=== PATIENT | female | born 1960 | race Caucasian/White ===

== ENCOUNTER 2017-07-24 19:07 | Emergency (ER) | payer OTHER ==
[2017-07-24 19:14] VITALS: BMI 42.4
--- NOTE | 2017-07-24 19:21 | PDOC ---
History of Present Illness <Harika Maldonado - Last Filed: 07/24/17 20:02> <Trinity Hopson - Last Filed: 07/25/17 00:40> - General Chief Complaint: Chest Pain Stated Complaint: CHEST TIGHTNESS Time Seen by Provider: 07/24/17 19:09 - History of Present Illness Initial Comments: 07/24/17 20:02 The patient is a 56 year old female, with a significant past medical history of asthma (advair and singulair daily), hypertension, lymphedema, GERD (omeprazole) , and anxiety (Prozac BID), who presents to the emergency department with sudden onset of chest tightness followed immediately by numerous episodes of watery, brown stool around 5PM this evening. She states she was making dinner for her grandson when she developed a heaviness to the middle of her chest which has been constant since onset, however, is much less tight now. She reports noticing a warmth to her left shoulder but denies experiencing pain to her upper extremities. She denies the shoulder warmth now. She states she sat down and ate a baked potato and became very nauseous, which was then followed by her few episodes of nonbloody, diarrhea. She reports a similar episode of chest tightness on Saturday, 07/20, which she states resolved on its own. She states she feels much better being in the ED now and feels she might have let the anxiety get to me. She states the only similarity between today and Saturday is the caffeine she reports drinking just prior to the onset of her chest tightness. She states today she drank a lot of caffeine and on Saturday she had drank a bottle of Mountain Dew. Secondarily, she states she just started a cabbage soup diet yesterday in attempt to lose weight before a total hip replacement in the near future. She denies chest pain, shortness of breath, headache and dizziness. She denies fever, chills, nausea, vomit, diarrhea and constipation. She denies dysuria, frequency, urgency and hematuria. Allergies: NKDA Past surgical history: gastric bypass (11 years ago) PCP - Dr. Lyn Jansen (Harika Maldonado) Past History <Harika Maldonado - Last Filed: 07/24/17 20:02> - Past Medical History HTN: Yes - Surgical History Cholecystectomy: Yes Gastric Stapling: Yes - Suicide/Smoking/Psychosocial Hx Smoking History: Never smoked Have you smoked in the past 12 months: No Hx Alcohol Use: Yes Drug/Substance Use Hx: No Substance Use Type: Alcohol <Trinity Hopson - Last Filed: 07/25/17 00:40> - Past Medical History Allergies/Adverse Reactions: Allergies Allergy/AdvReac Type Severity Reaction Status Date / Time No Known Allergies Allergy Verified 07/24/17 19:08 Home Medications: Ambulatory Orders Albuterol Sulfate Inhaler - [Ventolin Hfa Inhaler -] 1 puff IH DAILY 07/24/17 Duloxetine HCl [Cymbalta -] 60 mg PO DAILY 07/24/17 Furosemide [Lasix] 40 mg PO DAILY 07/24/17 Losartan Potassium [Cozaar] 100 mg PO DAILY 07/24/17 Montelukast Na [Singulair -] 10 mg PO HS 07/24/17 Omeprazole 40 mg PO DAILY 07/24/17 Salmeterol/Fluticasone [Advair 500Mcg/50Mcg] 1 inh PO BID 07/24/17 Sertraline HCl [Zoloft] 100 mg PO DAILY 07/24/17 Review of Systems - Review of Systems Able to Perform ROS?: Yes <Harika Maldonado - Last Filed: 07/24/17 20:02> <Trinity Hopson - Last Filed: 07/25/17 00:40> - Review of Systems Comments:: 07/24/17 20:03 CONSTITUTIONAL: Absent: fever, chills, diaphoresis, generalized weakness, malaise, loss of appetite HEENT: Absent: rhinorrhea, nasal congestion, throat pain, throat swelling, difficulty swallowing,mouth swelling, ear pain, eye pain, visual Changes CARDIOVASCULAR: (+) chest "heaviness". Absent: chest pain, syncope, palpitations, irregular heart rate, lightheadedness, peripheral edema RESPIRATORY: Absent: cough, shortness of breath, dyspnea with exertion, orthopnea, wheezing, stridor, hemoptysis GASTROINTESTINAL: (+) nausea, diarrhea,Absent: abdominal pain, abdominal distension, vomiting, or constipation, melena, hematochezia GENITOURINARY: Absent: dysuria, frequency, urgency, hesitancy, hematuria, flank pain, genital pain MUSCULOSKELETAL: Absent: myalgia, arthralgia, joint swelling SKIN: Absent: rash, itching, pallor HEMATOLOGIC/IMMUNOLOGIC: Absent: easy bleeding, easy bruising, lymphadenopathy, frequent infections ENDOCRINE: Absent: unexplained weight gain, unexplained weight loss, heat intolerance, cold intolerance NEUROLOGIC: Absent: headache, focal weakness or paresthesias, dizziness, unsteady gait, seizure, mental status changes, bladder or bowel incontinence PSYCHIATRIC: Absent: anxiety, depression, suicidal or homicidal ideation, hallucinations. (Harika Maldonado) *Physical Exam <Harika Maldonado - Last Filed: 07/24/17 20:02> <Trinity Hopson - Last Filed: 07/25/17 00:40> - Vital Signs Last Vital Signs Temp Pulse Resp BP Pulse Ox 82 16 141/72 100 07/24/17 19:08 07/24/17 19:08 07/24/17 20:42 07/24/17 19:08 - Physical Exam Comments: 07/24/17 20:04 GENERAL: The patient is awake, alert, and fully oriented, in no acute distress. HEAD: Normal with no signs of trauma. EYES: Pupils equal, round and reactive to light, extraocular movements intact, sclera anicteric, conjunctiva clear with no pallor. ENT: Ears normal, nares patent, oropharynx clear without exudates. Moist mucous membranes. NECK: Normal range of motion, supple without lymphadenopathy, JVD, or masses. LUNGS: Breath sounds equal, clear to auscultation bilaterally. No wheeze/ crackles. HEART: Regular rate and rhythm, normal S1 and S2 without murmur or rub. ABDOMEN: Soft/nontender/nondistended. BS wnl. No guarding or rebound. No palpable masses. No hepatosplenomegaly. EXTREMITIES: Normal range of motion, no edema. No clubbing or cyanosis. No cords , erythema, or tenderness. NEUROLOGICAL: Cranial nerves II through XII grossly intact. Normal speech, normal gait. PSYCH: Normal mood, normal affect. SKIN: Warm, Dry, normal turgor, no rashes or lesions noted. (Harika Maldonado) ED Treatment Course - LABORATORY CBC & Chemistry Diagram: 07/24/17 19:24 07/24/17 19:24 <Harika Maldonado - Last Filed: 07/24/17 20:02> - LABORATORY CBC & Chemistry Diagram: 07/24/17 19:24 07/24/17 19:24 <Trinity Hopson - Last Filed: 07/25/17 00:40> - ADDITIONAL ORDERS Additional order review: Laboratory Results 07/24/17 19:24 Sodium 137 Potassium 4.6 Chloride 105 Carbon Dioxide 26 Anion Gap 6 L BUN 13 Creatinine 1.1 D Creat Clearance w eGFR 51.02 Random Glucose 115 H Calcium 9.5 Total Bilirubin 0.8 AST 34 ALT 24 Alkaline Phosphatase 80 Creatine Kinase 55 Troponin I < 0.03 L Total Protein 8.2 Albumin 4.8 07/24/17 19:24 RBC 4.76 MCV 91.9 MCHC 34.5 RDW 13.7 MPV 8.2 Neutrophils % 71.3 Lymphocytes % 15.3 Monocytes % 9.1 Eosinophils % 1.4 Basophils % 2.9 H Progress Note <Harika Mladonado - Last Filed: 07/24/17 20:02> <Trinity Hopson - Last Filed: 07/25/17 00:40> - Progress Note Progress Note: Documentation has been prepared under my direction and personally reviewed by me in its entirety. I attest that this documented accurately reflects all work, treatment, procedures and medical decision making performed by me. (Trinity Hopson) Medical Decision Making <Harika Maldonado - Last Filed: 07/24/17 20:02> <Trinity Hopson - Last Filed: 07/25/17 00:40> - Medical Decision Making As noted above, this 56-year-old woman with hypertension/asthma presents with chest pressure and diarrhea that began 2 hours prior to presentation. Symptoms have been improving since onset. She had no significant associated symptoms. As noted, the patient admits to high caffeine intake earlier today and change in diet starting yesterday. Exam as noted Twelve-lead electrocardiogram is performed and interpreted by me. Showed normal sinus rhythm at 66 bpm; axis, intervals and wave forms are all normal. No acute ST or T-wave abnormalities are seen. CBC/chemistry profile/cardiac enzymes were evaluated. No significant abnormality seen in her laboratory values. Patient is feeling significantly better without development of new symptoms and resolution of her chest pressure. Patient will be discharged with instructions to avoid excessive caffeine consumption; she should continue to take her medications as prescribed and follow-up with her general doctor within the next 2 days. She should return to the ER if she has any persistent chest pressure or develops shortness of breath/ diaphoresis/nausea (Trinity Hopson) *DC/Admit/Observation/Transfer <Harika Maldonado - Last Filed: 07/24/17 20:02> <Trinity Hopson - Last Filed: 07/25/17 00:40> Diagnosis at time of Disposition: Atypical chest pain - Discharge Dispostion Disposition: HOME Condition at time of disposition: Stable - Referrals Referrals: Lyn Jansen [Primary Care Provider] - - Patient Instructions Printed Discharge Instructions: DI for Atypical Chest Pain Additional Instructions: Drink plenty of water as discussed Continue medications as prescribed Return to ER if you have persistent chest pressure or shortness of breath Follow-up with your general doctor within the next 2-3 days - Attestations Scribe Attestion: 07/24/17 20:04 Documentation prepared by Harika Maldonado, acting as resident medical officer for Trinity Hopson MD (Harika Maldonado)
[2017-07-24 19:25] VITALS: PULSE 82
[2017-07-24 19:41] LABS: BASOPHIL 2.9 % (0-2.0); EOSINOPHIL 1.4 % (0-4.5); MCH 31.7 pg (25.7-33.7); MCHC 34.5 g/dl (32.0-36.0); MEAN CELL VOLUME 91.9 fl (80-96); MEAN PLT VOLUME 8.2 fl (7.5-11.1); NEUTROPHILS 71.3 % (42.8-82.8); PLATELET COUNT 212 K/MM3 (134-434); RDW 13.7 % (11.6-15.6); WHITE BLOOD COUNT 6.2 K/mm3 (4.0-10.8)
[2017-07-24 19:56] LABS: ALBUMIN 4.8 g/dl (3.5-5.0); ALK PHOS 80 U/L (32-92); ANION GAP 6 (8-16); BILIRUBIN,TOTAL 0.8 mg/dl (0.2-1.0); CALCIUM 9.5 mg/dl (8.4-10.2); CO2 26 mmol/L (22-28); CPK 55 IU/L (26-192); CREATININE 1.1 mg/dl (0.6-1.3); GLUCOSE,RANDOM 115 mg/dl (74-106); SGOT/AST 34 U/L (10-42); SGPT/ALT 24 U/L (10-40); TOT PROT 8.2 g/dl (6.4-8.3)
[2017-07-24 20:19] LABS: TROPONIN I (DFP) < 0.03 ng/ml (0.03-0.50)
[2017-07-24 20:42] VITALS: BP 141/72
--- NOTE | 2017-07-25 08:48 | EKG ---
Test Reason : Blood Pressure : / mmHG Vent. Rate : 066 BPM Atrial Rate : 066 BPM P-R Int : 152 ms QRS Dur : 074 ms QT Int : 400 ms P-R-T Axes : 044 023 044 degrees QTc Int : 419 ms NORMAL SINUS RHYTHM NORMAL ECG NO PREVIOUS ECGS AVAILABLE Confirmed by ADELITA LR MD ([id number]) on 07/25/2017 8:47:47 AM Referred By: DR HAWKINS Confirmed By:ADELITA LR MD
== END 2017-07-24 20:43 | disposition home or self-care (01) ==
LOC: FER 19:07
DX: R07.89 Other chest pain (principal); J45.909 Unspecified asthma, uncomplicated
CPT/HCPCS: 36415; 80053; 84484; 85025; 93005; 99283-25

== ENCOUNTER 2018-01-01 15:18 | Emergency (ER) | payer OTHER ==
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
[2018-01-01 15:38] VITALS: BMI 41.5
[2018-01-01] MEDS ORDERED: ASPIRIN 81 MG CHEWABLE TABLETS PO ONE (15:54)
[2018-01-01] MEDS ORDERED: ASPIRIN 81 MG CHEWABLE TABLETS ONE (16:01)
[2018-01-01 16:08] LABS: WHITE BLOOD COUNT 5.9 K/mm3 (4.0-10.8)
[2018-01-01 16:24] LABS: ALBUMIN 4.5 g/dl (3.5-5.0); ALK PHOS 80 U/L (32-92); ANION GAP 6 (8-16); BILIRUBIN,TOTAL 0.6 mg/dl (0.2-1.0); BLOOD UREA NITROGEN 13 mg/dl (7-18); CALCIUM 9.3 mg/dl (8.4-10.2); CHLORIDE 101 mmol/L (98-107); CO2 28 mmol/L (22-28); CREATININE 0.8 mg/dl (0.6-1.3); GLUCOSE,RANDOM 115 mg/dl (74-106); SGOT/AST 38 U/L (10-42); SGPT/ALT 21 U/L (10-40); SODIUM 135 mmol/L (136-145); TOT PROT 8.1 g/dl (6.4-8.3)
[2018-01-01 16:28] LABS: BASO % 0.7 % (0-2.0); EOS % 1.9 % (0-4.5); HEMOGLOBIN 14.9 GM/dl (10.7-15.3); LYMPH % 15.2 % (8-40); MCH 33.2 pg (25.7-33.7); MCHC 34.5 g/dl (32.0-36.0); MEAN CELL VOLUME 96.2 fl (80-96); MEAN PLT VOLUME 8.4 fl (7.5-11.1); MONO % 7.2 % (3.8-10.2); PLATELET COUNT 215 K/MM3 (134-434); RBC 4.47 M/mm3 (3.60-5.2); RDW 12.8 % (11.6-15.6)
[2018-01-01] MEDS ORDERED: ONDANSETRON 4 MG/2 ML VIAL IVPUSH ONE (18:42)
[2018-01-01] MEDS ORDERED: FAMOTIDINE IV 20 MG/12 ML VIAL IVPB ONE (18:42)
[2018-01-01] MEDS ORDERED: ONDANSETRON 4 MG/2 ML VIAL ONE (18:44)
[2018-01-01] MEDS ORDERED: FAMOTIDINE 20 MG/50 ML IVPB 20 MG/50 ML MG IVPB ONE (18:44)
--- NOTE | 2018-01-01 19:12 | PDOC ---
*Physical Exam - Vital Signs Last Vital Signs Temp Pulse Resp BP Pulse Ox 99.3 F 75 18 166/83 99 01/01/18 15:18 01/01/18 15:18 01/01/18 15:18 01/01/18 15:18 01/01/18 15:18 ED Treatment Course - LABORATORY CBC & Chemistry Diagram: 01/01/18 15:50 01/01/18 15:50 - ADDITIONAL ORDERS Additional order review: Laboratory Results 01/01/18 01/01/18 01/01/18 18:25 15:50 15:50 Sodium 135 L Potassium 4.0 Chloride 101 Carbon Dioxide 28 Anion Gap 6 L BUN 13 Creatinine 0.8 D Creat Clearance w eGFR > 60 Random Glucose 115 H Calcium 9.3 Total Bilirubin 0.6 D AST 38 ALT 21 Alkaline Phosphatase 80 Troponin I < 0.03 < 0.03 Total Protein 8.1 Albumin 4.5 01/01/18 15:50 RBC 4.47 MCV 96.2 H MCHC 34.5 RDW 12.8 MPV 8.4 Neutrophils % 75.0 Lymphocytes % 15.2 Monocytes % 7.2 Eosinophils % 1.9 Basophils % 0.7 - Medications Given in the ED: ED Medications Discontinued Medications Generic Name Dose Route Start Last Admin Trade Name Freq PRN Reason Stop Dose Admin Aspirin 162 mg 01/01/18 15:54 01/01/18 16:00 Asa - PO 01/01/18 15:55 162 mg ONCE ONE Administration Famotidine 20 mg in 12 mls @ 144 mls/hr 01/01/18 18:42 01/01/18 18:50 Pepcid 20 Mg/12 Ml Push IVPB 01/01/18 18:46 144 mls/hr ONCE ONE Administration Ondansetron HCl 4 mg 01/01/18 18:42 01/01/18 18:45 Zofran Injection IVPUSH 01/01/18 18:43 4 mg NOW ONE Administration Medical Decision Making - Medical Decision Making 01/01/18 19:27 Care of this patient received from Dr. Lincoln. Second troponin is less than 0.03. Results discussed with the patient; she is feeling much better after Pepcid IV/ Zofran IV. In retrospect, the patient believes that her pain may have been associated with a change in diet: She is trying to lose weight and has markedly increased her intake of vegetables. Today symptoms began after eating home cooked cabbage soup. Patient will be discharged with follow-up with her doctor; she should continue medications (including Prilosec) as previously prescribed. She should return to the emergency room if she has persistent chest/epigastric pain, shortness of breath or nausea *DC/Admit/Observation/Transfer Diagnosis at time of Disposition: Atypical chest pain GERD (gastroesophageal reflux disease) Qualifiers: Esophagitis presence: with esophagitis Qualified Code(s): K21.0 - Gastro- esophageal reflux disease with esophagitis - Discharge Dispostion Disposition: HOME Condition at time of disposition: Stable - Referrals Referrals: Lyn Jansen [Primary Care Provider] - 1 week - Patient Instructions Printed Discharge Instructions: DI for Atypical Chest Pain, GERD Diet Additional Instructions: Continue medications as prescribed Avoid foods that worsen reflux as discussed Follow-up with your PCP within one week Return to ER immediately if you have persistent chest/upper abdominal pain, shortness of breath, nausea, sweating - Post Discharge Activity
[2018-01-01 19:45] VITALS: BP 133/72; PULSE 69; TEMP 98.1
--- NOTE | 2018-01-02 16:03 | EKG ---
Test Reason : Blood Pressure : / mmHG Vent. Rate : 066 BPM Atrial Rate : 066 BPM P-R Int : 132 ms QRS Dur : 080 ms QT Int : 400 ms P-R-T Axes : 067 033 053 degrees QTc Int : 419 ms NORMAL SINUS RHYTHM NONSPECIFIC ST AND T WAVE ABNORMALITY WHEN COMPARED WITH ECG OF 24-JUL-2017 19:34, NO SIGNIFICANT CHANGE WAS FOUND Confirmed by MD REID MARJORY ([id number]) on 01/02/2018 4:02:50 PM Referred By: JAIDA BOWIE Confirmed By:IVETH REID MD
== END 2018-01-01 19:45 | disposition home or self-care (01) ==
LOC: FER 15:18
PROC: 3E033GC Introduction of Other Therapeutic Substance into Peripheral Vein, Percutaneous Approach (ICD-10-PCS; principal; 2018-01-01)
DX: R07.89 Other chest pain (principal)
CPT/HCPCS: 36415; 71045-TC-FY; 71275-TC; 80053; 84484; 85025; 93005; 99285-25

== ENCOUNTER 2018-07-20 11:04 | Emergency (ER) | payer OTHER ==
--- NOTE | 2018-07-20 11:14 | PDOC ---
History of Present Illness - General Chief Complaint: Edema Stated Complaint: LEFT FACE SWLLING DRAINAGE Time Seen by Provider: 07/20/18 11:10 - History of Present Illness Initial Comments: 07/20/18 11:21 57yo F hx htn, asthma, anxiety presents to the emergency department with left eye pain and redness for 4 days. Patient reports noticing her left eye was painful on , went to see primary doctor on Saturday and was prescribed polymyxin drops and Augmentin which she started yesterday. She presents emergency department today due to continued pain, eye redness, and copious tearing from the left eye. She also reports the pain around her eyes tracking down the left side of her face. She reports this morning her eyes were crusted shut. Does not know of any foreign bodies that got into her eye. Denies any fevers or chills. Denies any blurry vision or decreased vision from the left eye. Denies any headaches. Denies similar symptoms in the past. Patient also denies chest pain, shortness of breath, abdominal pain, nausea, vomiting, diarrhea, focal weakness or numbness. Past History - Past Medical History Allergies/Adverse Reactions: Allergies Allergy/AdvReac Type Severity Reaction Status Date / Time No Known Allergies Allergy Verified 07/20/18 11:22 Home Medications: Ambulatory Orders Furosemide [Lasix] 40 mg PO DAILY 07/24/17 Losartan Potassium [Cozaar] 100 mg PO DAILY 07/24/17 Montelukast Na [Singulair -] 10 mg PO HS 07/24/17 Omeprazole 40 mg PO DAILY 07/24/17 Amlodipine Besylate 10 mg PO DAILY 01/01/18 Amox-Tr/K Cl [Augmentin - 500Mg Tablet] 1 tab PO BID 07/20/18 Polymyxin B Sulf/Trimethoprim [Polymyxin B-Tmp Eye Drops] 10 ml OP ASDIR Asthma: Yes COPD: No GI Disorders: Yes (ACID REFLUX) HTN: Yes Psychiatric Problems: Yes (ANXIETY, DEPRESSION) - Surgical History Abdominal Surgery: Yes (GASTRIC BYPASS 2011) Cholecystectomy: Yes Gastric Stapling: Yes - Suicide/Smoking/Psychosocial Hx Smoking History: Never smoked Have you smoked in the past 12 months: No Hx Alcohol Use: (occasional) Drug/Substance Use Hx: No Substance Use Type: Alcohol Review of Systems - Review of Systems Comments:: 07/20/18 11:23 GENERAL/CONSTITUTIONAL: No fever or chills. No weakness. HEAD, EYES, EARS, NOSE AND THROAT: No change in vision. +L eye pain, redness, and discharge. No ear pain or discharge. No sore throat. GASTROINTESTINAL: No nausea, vomiting, diarrhea or constipation. GENITOURINARY: No dysuria, frequency, or change in urination. CARDIOVASCULAR: No chest pain or shortness of breath. RESPIRATORY: No cough, wheezing, or hemoptysis. MUSCULOSKELETAL: No joint or muscle swelling or pain. No neck or back pain. SKIN: No rash NEUROLOGIC: No headache, vertigo, loss of consciousness, or change in strength/ sensation. ENDOCRINE: No increased thirst. No abnormal weight change. HEMATOLOGIC/LYMPHATIC: No anemia, easy bleeding, or history of blood clots. ALLERGIC/IMMUNOLOGIC: No hives or skin allergy. *Physical Exam - Physical Exam Comments: 07/20/18 11:24 GENERAL: Awake, alert, and fully oriented, in no acute distress HEAD: No signs of trauma, +L pre-auricular tender lymph node. No temporal ttp EYES: OS: EOMI, PERRL, +diffuse hyperemia, +continuous watery discharge. 20/20 vision corrected OU. Fluorescien testing with 2x2mm area of uptake at 6o'clock ENT: Auricles normal inspection, hearing grossly normal, nares patent, oropharynx clear without exudates. Moist mucosa NECK: Normal ROM, supple, no lymphadenopathy, JVD, or masses LUNGS: Breath sounds equal, clear to auscultation bilaterally. No wheezes, and no crackles HEART: Regular rate and rhythm, normal S1 and S2, no murmurs, rubs or gallops ABDOMEN: Soft, nontender, normoactive bowel sounds. No guarding, no rebound. No masses EXTREMITIES: Normal range of motion, no edema. No clubbing or cyanosis. No cords, erythema, or tenderness NEUROLOGICAL: Normal speech, cranial nerves intact, 5/5 strength in all 4 extremities, normal sensation to light touch in all 4 extremities,normal gait SKIN: Warm, Dry, normal turgor, no rashes or lesions noted. Medical Decision Making - Medical Decision Making 07/20/18 11:46 57-year-old female presents emergency Department with left eye pain, redness, and discharge. Vitals unremarkable. Eye exam with OS diffuse hyperemia, clear tearing, and fluorescein uptake at 6:00 consistent with corneal abrasion. Vision intact. Symptoms have been ongoing for 4 days which is a little bit long for corneal abrasion. As such case was discussed with auto body straightener Dr. Hanson would like to see patient in the office today at 1:45 PM. Plan discussed with patient who agrees and will follow-up at the office today. Patient advised to continue taking the Polytrim drops for the corneal abrasion. Patient to return if she has any new worsening or concerning symptoms. I discussed the physical exam findings, ancillary test results and final diagnoses with the patient. I answered all of the patient's questions. The patient was satisfied with the care received and felt comfortable with the discharge plan and treatment plan. The patient will call their primary care physician within 24 hours to arrange follow-up and will return to the Emergency Department with any new, persistent or worsening symptoms. *DC/Admit/Observation/Transfer Diagnosis at time of Disposition: Corneal abrasion - Discharge Dispostion Disposition: HOME Condition at time of disposition: Stable Decision to Admit order: No - Referrals - Patient Instructions Printed Discharge Instructions: DI for Corneal Abrasion Additional Instructions: As discussed, follow-up with Dr. Hanson (auto body straightener) today at 1:45 PM. Address: [address] [place] [address], [id number] Continue to polytrim drops Return to the emergency department if you have any new, worsening, or concerning symptoms. - Post Discharge Activity - Attestations Physician Attestion: 07/20/18 11:51 I, Dr. Tae Aguilera MD, attest that this document has been prepared under my direction and personally reviewed by me in its entirety. I further attest, that it accurately reflects all work, treatment, procedures and medical decision -making performed by me.
[2018-07-20] MEDS ORDERED: TETRACAINE 0.5% OPHTH SOLN 2 ML BOTTLE ONE (11:16)
[2018-07-20] MEDS ORDERED: FLUORESCEIN NA 1 EA STRIP ONE (11:17)
[2018-07-20] MEDS ORDERED: FLUORESCEIN NA 1 EA STRIP OS ONE (11:27)
[2018-07-20] MEDS ORDERED: TETRACAINE 0.5% HCL 0.6ML DROPPER.BOTTLE OS ONE (11:28)
[2018-07-20 11:29] VITALS: BP 129/73; PULSE 57; TEMP 99.1; BMI 42.9
== END 2018-07-20 12:10 | disposition home or self-care (01) ==
LOC: FER 11:04
DX: S05.02XA Injury of conjunctiva and corneal abrasion without foreign body, left eye, initial encounter (principal); F41.8 Other specified anxiety disorders; J45.909 Unspecified asthma, uncomplicated; Z98.84 Bariatric surgery status; K21.9 Gastro-esophageal reflux disease without esophagitis
CPT/HCPCS: 99281-25

== ENCOUNTER 2019-08-27 09:40 | Emergency (ER) | payer OTHER ==
--- NOTE | 2019-08-27 10:12 | PDOC ---
History of Present Illness - General History Source: Patient Exam Limitations: No Limitations - History of Present Illness Initial Comments: 08/27/19 10:07 58y F with PMH of HTN, Asthma, Lymphedema, GERD, Hypothyroidism presenting to ED with complaints of R arm pain and "not feeling right". She states that this morning around 9am she had a sharp pain in the R arm and feelings of uneasiness. She checked her bp and it was 150s/90s. She had similar episodes 3d ago on Saturday which occurred sporadically throughout the day and would self resolve. These episodes would last for a few seconds. She has not had feelings like this before in the past. She endorses nausea and lightheadedness during these episodes. Denies sob, chest pain, back pain, abdominal pain, vomiting, diarrhea, cough, fevers, chills, recent illnesses, recent travel. Her sister had [place] and stroke in her 60s. Her mother also has cardiac history. Denies smoking. She has swelling in the legs which is stable. PMD: Inderjit PMH: see hpi PSH: cholecystetomy, hysterectomy Allergies: nkda Social: denies Meds: amlodipine, losartan, metoprolol, Singulair, proair <Loreta Paulino - Last Filed: 08/27/19 11:59> - History of Present Illness Initial Comments: attg correction: left arm pain 08/27/19 12:17 <Geena Pablo - Last Filed: 08/27/19 12:17> - General Chief Complaint: Pain Stated Complaint: ANXIETY, LEFT ARM PAIN Time Seen by Provider: 08/27/19 09:56 Past History - Past Medical History Asthma: Yes COPD: No GI Disorders: Yes (ACID REFLUX) HTN: Yes Psychiatric Problems: Yes (ANXIETY, DEPRESSION) - Surgical History Abdominal Surgery: Yes (GASTRIC BYPASS 2011) Cholecystectomy: Yes Gastric Stapling: Yes - Psycho Social/Smoking Cessation Hx Smoking History: Never smoked Have you smoked in the past 12 months: No Hx Alcohol Use: (occasional) Drug/Substance Use Hx: No Substance Use Type: Alcohol <Loreta Paulino - Last Filed: 08/27/19 11:59> <Geena Pablo - Last Filed: 08/27/19 12:17> - Past Medical History Allergies/Adverse Reactions: Allergies Allergy/AdvReac Type Severity Reaction Status Date / Time No Known Allergies Allergy Verified 08/27/19 09:56 Home Medications: Ambulatory Orders Furosemide [Lasix] 40 mg PO DAILY 07/24/17 Losartan Potassium [Cozaar] 100 mg PO DAILY 07/24/17 Montelukast Na [Singulair -] 10 mg PO DAILY 07/24/17 Omeprazole 40 mg PO DAILY 07/24/17 Amlodipine Besylate 10 mg PO DAILY 01/01/18 Albuterol Sulfate Inhaler - [Ventolin Hfa Inhaler -] 1 - 2 inh PO QID PRN Cephalexin Monohydrate [Keflex -] 500 mg PO BID #10 capsule 08/27/19 Ergocalciferol (Vitamin D2) [Vitamin D2] 1.25 mg PO WEEKLY 08/27/19 Fluticasone/Vilanterol [Breo Ellipta 100-25 Mcg INH] 1 each IH DAILY 08/27/19 Iron PO DAILY 08/27/19 Levothyroxine [Synthroid -] 50 mcg PO DAILY 08/27/19 Metoprolol Succinate [Toprol Xl] 50 mg PO DAILY 08/27/19 Sertraline HCl [Zoloft -] 50 mg PO DAILY 08/27/19 Review of Systems - Review of Systems Constitutional: No: Chills, Fever HEENTM: No: Symptoms Reported Respiratory: No: Cough, Shortness of Breath Cardiac (ROS): Yes: Lightheadedness. No: Chest Pain, Palpitations, Syncope ABD/GI: No: Constipated, Diarrhea, Nausea, Vomiting, Abdominal cramping : No: Symptoms Reported Musculoskeletal: No: Back Pain, Joint Pain, Neck Pain Integumentary: No: Symptoms Reported Neurological: No: Headache, Numbness, Tingling, Weakness, Unsteady Gait, Dizziness Psychiatric: Yes: Anxiety <Loreta Paulino - Last Filed: 08/27/19 11:59> *Physical Exam - Physical Exam General Appearance: Yes: Nourished, Appropriately Dressed. No: Apparent Distress HEENT: positive: EOMI, KOLE, Normal ENT Inspection Neck: positive: Trachea midline, Supple. negative: Lymphadenopathy (R), Lymphadenopathy (L) Respiratory/Chest: positive: Lungs Clear, Normal Breath Sounds. negative: Crackles, Rales, Rhonchi, Stridor, Wheezing Cardiovascular: positive: Regular Rhythm, Regular Rate, S1, S2. negative: Edema , JVD, Murmur Vascular Pulses: Dorsalis-Pedis (R): 2+, Doralis-Pedis (L): 2+ Gastrointestinal/Abdominal: positive: Normal Bowel Sounds, Soft. negative: Distended, Guarding, Rebound, Tenderness Musculoskeletal: negative: CVA Tenderness Extremity: positive: Normal Capillary Refill, Swelling (bilateral LE edema ). negative: Calf Tenderness Integumentary: positive: Normal Color, Dry, Warm Neurologic: positive: voucher examiner II-XII NML intact, Fully Oriented, Alert, Normal Mood/ Affect, Normal Response, Motor Strength 5/5 <Loreta Paulino - Last Filed: 08/27/19 11:59> - Vital Signs Last Vital Signs Temp Pulse Resp BP Pulse Ox 98.4 F 55 L 14 113/64 99 08/27/19 09:55 08/27/19 11:00 08/27/19 11:00 08/27/19 11:00 08/27/19 11:00 <Geena Pablo - Last Filed: 08/27/19 12:17> Heart Score/ECG Review - History History: Slightly suspicious - Age Age: 45-65 - Risk Factors Risk Factors Heart Score: Yes Hx Hypertension, Yes Positive family hx of cardiac disease, Yes Hx Obesity Based on the list above the patient has:: >/=3 risk factors or Hx atherosclerotic disease <Loreta Paulino - Last Filed: 08/27/19 11:59> ED Treatment Course - LABORATORY CBC & Chemistry Diagram: 08/27/19 10:38 08/27/19 10:38 - RADIOLOGY Radiology Studies Ordered: Category Date Time Status CHEST PA & LAT [RAD] Stat Radiology 08/27/19 10:03 Ordered <Loreta Paulino - Last Filed: 08/27/19 11:59> - LABORATORY CBC & Chemistry Diagram: 08/27/19 10:38 08/27/19 10:38 - ADDITIONAL ORDERS Additional order review: Laboratory Results 08/27/19 08/27/19 08/27/19 10:38 10:38 10:38 Sodium 140 Potassium 4.0 Chloride 106 Carbon Dioxide 24 Anion Gap 10 BUN 15.0 Creatinine 0.8 Est GFR (CKD-EPI)AfAm 92.87 Est GFR (CKD-EPI)NonAf 80.13 Random Glucose 104 Calcium 8.6 Magnesium 2.0 Total Bilirubin 0.7 AST 23 ALT 19 Alkaline Phosphatase 75 Creatine Kinase 30 Troponin I < 0.03 Total Protein 6.8 Albumin 3.8 Urine Color Yellow Urine Appearance Clear Urine pH 5.0 Urine Protein 1+ H Urine Glucose (UA) Negative Urine Ketones Trace Urine Blood Negative Urine Nitrite Negative Urine Bilirubin 1+ H Urine Urobilinogen 0.2 Ur Leukocyte Esterase 1+ Urine RBC 0-2 Urine WBC 20-40 Ur Transition Epith Cell Many Urine Bacteria Few 08/27/19 10:38 RBC 4.33 MCV 98.3 H MCHC 33.4 RDW 13.3 MPV 8.3 Neutrophils % 76.8 Lymphocytes % 12.6 Monocytes % 7.5 Eosinophils % 2.6 Basophils % 0.5 <Geena Pablo - Last Filed: 08/27/19 12:17> Medical Decision Making - Medical Decision Making 08/27/19 11:56 58y F presenting with R arm pains and feelings of uneasiness intermittently. vitls: wnl PE lungs cta, normal heart sounds, no abdominal tenderness, bilateral edema which is baseline. ddx includes but not limited to atypical acs, pna, pe, uti, anxiety, gerd. low suspicion for chf. will order labs: cbc, cmp, cardiac profile, ekg, cxr pt not in any distress at this time, does not require acute intervention. 08/27/19 11:59 cxr: no acute pathology ekg: sinus adria at 5 bpm, normal intervals, no jourdan or depressions, no signs of ischemia. labs wnl. ua positive for infection. pt feeling better, does not want to wait for repeat troponin. low suspicion for ACS: patient has atypical symptoms which self resolve and states she feels fine. symptoms could be explained by uti. patient understands to return to ED for any worsening symptoms. has laundry route driver to follow up with. Rx for keflex 500mg bid x5d sent to pharmacy. dispo: home <Loreta Paulino - Last Filed: 08/27/19 11:59> Discharge - Discharge Information Problems reviewed: Yes <Loreta Paulino - Last Filed: 08/27/19 11:59> <Geena Pablo - Last Filed: 08/27/19 12:17> - Discharge Information Clinical Impression/Diagnosis: UTI (urinary tract infection) Qualifiers: Urinary tract infection type: site unspecified Hematuria presence: without hematuria Qualified Code(s): N39.0 - Urinary tract infection, site not specified Condition: Good Disposition: HOME - Additional Discharge Information Prescriptions: Cephalexin Monohydrate [Keflex -] 500 mg PO BID #10 capsule - Follow up/Referral Referrals: Lyn Jansen [Primary Care Provider] - Rigoberto Cui MD [Staff Physician] - - Patient Discharge Instructions Additional Instructions: You were seen in the emergency room today for arm discomfort. Your blood tests are normal. You have a urinary tract infection. A prescription for an antibiotic was sent to your pharmacy. Take as directed. I recommend following up with your laundry route driver. Come back to the emergency room if you have worsening discomfort or chest pain, feel short of breath, you pass out or if any new or concerning symptom develops. Thank you - Post Discharge Activity Work/Back to School Note: Back to Work
[2019-08-27 10:15] VITALS: BMI 41.8
[2019-08-27 10:17] VITALS: TEMP 98.4
--- NOTE | 2019-08-27 10:20 | PDOC ---
Attending Attestation - Resident Resident Name: LoraLoreta - ED Attending Attestation I have performed the following: I have examined & evaluated the patient, The case was reviewed & discussed with the resident, I agree w/resident's findings & plan - HPI HPI: 08/27/19 10:19 58yo F hx htn, asthma, anxiety, HTN, arthritis, GERD, hypothyroidism, Lymphedema presents to the emergency department with left arm rico and funny feeling "all over" more in the lower abdominal region, beginning 9AM, occurred again while driving on the highway. Her BP was elevated at home 150s/90, has since come down. Denies trigger or precipitating factors. no prior symptoms of similar features 08/27/19 11:44 - Physicial Exam PE: 08/27/19 10:18 Agree with the resident's HPI and PE as documented in the electronic medical record. NAD, well appearing, EOMI, PERRL, nl conjunctiva, anicteric; neck supple. lungs clear, RRR, abdomen soft nontender. no rebound, guarding. Back nontender. FARR x4, no focal neuro deficits. No peripheral edema. normal color for ethnicity , WWP. - Medical Decision Making 08/27/19 10:19 Vital Signs Temp Pulse Resp BP Pulse Ox 98.4 F 71 16 149/78 99 08/27/19 09:55 08/27/19 09:55 08/27/19 09:55 08/27/19 09:55 08/27/19 09:55 DDx chest pain: ACS, coronary vasospasm, NSTEMI, arrhythmia, unstable angina, PE , dissection, PUD, esophageal spasm, GERD, gastritis, costochondritis, pneumonia , pleurisy, pericarditis/myocarditis. dehydration, electrolyte/metabolic derangements. Considered but clinically doubt based on HPI and PE: Low suspicion for pulmonary embolism or dissection. Chest pain negative: No evidence of ACS, pericarditis, myocarditis, pulmonary embolism, pneumothorax, pneumonia, Zoster, or esophageal perforation. Historically not abrupt in onset, tearing or ripping, pulses symmetric, no evidence of aortic dissection. EKG normal sinus rhythm at 57 bpm, no interval abnormalities, narrow QRS, ST and T wave segments and morphology normal. Nonspecific T wave abnormalities flattening in III, Chest pain HEART score 2 with atypical sx. which denotes Low risk and probability for ACS, less than 1% risk for MACE at 4-6 wks 08/27/19 11:44 - pt wishes to be discharged. shared decision making at bedside pt feels well, ambulatory, no cp/sob, dizziness or syncope or neuro changes she remained asymptomatic, and never really had chest pain or demonstrate high risk features for ACS trop is negative, EKG is sinus rhythm, no ischemic findings, elevations or depressions lytes and CBC wnl. UA ?UTI, given acute symptoms that could suggest UTI, will treat with keflex course x 5d. f/u urine cultures PMD and cards referral Pt to be discharged in stable condition. Patient made aware of clinical impression, treatment recommendations and disposition plan, return precautions discussed (including but not limited to new or persistent/worsening symptoms, pain, fevers, or signs of infection, chest pain, respiratory distress, inability to tolerate oral intake, dehydration, syncope, or neurologic changes) . Follow up with PMD and/or specialist as recommended, follow up information provided, take medications as instructed for duration of time. continue with supportive care, avoid triggers and precipitants. All questions answered to patient's satisfaction and expressed understanding and comfort with this. At the time of discharge, the patient is alert, clinically improved, tolerating po and verbalizes understanding of instructions, satisfied with the care received and felt comfortable with the plan. Patient does not suffer from an acute life- threatening medical condition at this time and is safe for outpatient follow- up. Heart Score/ECG Review - History History: Slightly suspicious - Electrocardiogram EKG: Normal - Age Age: 45-65 - Risk Factors Risk Factors Heart Score: Yes Hx Hypertension, Yes Hx Obesity Based on the list above the patient has:: 1-2 risk factors - Troponin Troponin: </= normal limit - Score Heart Score - Total: 2 #1 ECG reviewed & interpreted by me at: 10:10 General ECG Interpretation: Sinus Rhythm, Normal Rate, Normal Intervals 08/27/19 10:20 EKG normal sinus rhythm at 57 bpm, no interval abnormalities, narrow QRS, ST and T wave segments and morphology normal. Nonspecific T wave abnormalities flattening in III,
[2019-08-27 10:54] LABS: BASO % 0.5 % (0-2.0); EOS % 2.6 % (0-4.5); HEMATOCRIT 42.5 % (32.4-45.2); HEMOGLOBIN 14.2 GM/dl (10.7-15.3); LYMPH % 12.6 % (8-40); MCH 32.8 pg (25.7-33.7); MCHC 33.4 g/dl (32.0-36.0); MEAN CELL VOLUME 98.3 fl (80-96); MEAN PLT VOLUME 8.3 fl (7.5-11.1); MONO % 7.5 % (3.8-10.2); NEUT % 76.8 % (42.8-82.8); PLATELET COUNT 223 K/MM3 (134-434); RBC 4.33 M/mm3 (3.60-5.2); RDW 13.3 % (11.6-15.6); WHITE BLOOD COUNT 6.8 K/mm3 (4.0-10.8)
[2019-08-27 11:07] LABS: ALBUMIN 3.8 g/dl (3.4-5.0); BILIRUBIN,TOTAL 0.7 mg/dl (0.2-1); CALCIUM 8.6 mg/dl (8.5-10); CREATININE 0.8 mg/dl (0.55-1.3); TOT PROT 6.8 g/dl (6.4-8.2)
[2019-08-27 11:12] LABS: EPITHELIAL CELLS MANY /hpf
[2019-08-27 11:17] VITALS: BP 113/64; PULSE 55
--- NOTE | 2019-08-28 14:13 | EKG ---
Test Reason : Blood Pressure : / mmHG Vent. Rate : 057 BPM Atrial Rate : 057 BPM P-R Int : 144 ms QRS Dur : 082 ms QT Int : 434 ms P-R-T Axes : 052 017 039 degrees QTc Int : 422 ms SINUS BRADYCARDIA OTHERWISE NORMAL ECG WHEN COMPARED WITH ECG OF 01-JAN-2018 15:25, NO SIGNIFICANT CHANGE WAS FOUND Confirmed by DAGOBERTO PEARL MD ([id number]) on 08/28/2019 2:13:16 PM Referred By: JIMBO BOWERS Confirmed By:DAGOBERTO PEARL MD
== END 2019-08-27 12:08 | disposition home or self-care (01) ==
LOC: FER 09:40
DX: N39.0 Urinary tract infection, site not specified (principal); I10 Essential (primary) hypertension; Z82.49 Family history of ischemic heart disease and other diseases of the circulatory system; E66.9 Obesity, unspecified
CPT/HCPCS: 36415; 71046-TC-FY; 80053; 81003; 81015; 82550; 83735; 84484; 85025; 87086; 93005; 99285-25

== ENCOUNTER 2020-10-16 14:54 | Inpatient (IN) | payer OTHER ==
[2020-10-16] MEDS ORDERED: FAMOTIDINE 20 MG/50 ML IVPB 20 MG/50 ML MG IVPB ONE ×2 (15:45→15:56)
[2020-10-16] MEDS ORDERED: LACTATED RINGERS SOLUTION 1000 ML INFUS.BAG IV ONE (15:45)
[2020-10-16] MEDS ORDERED: ONDANSETRON 4 MG/2 ML VIAL IVPUSH ONE (15:45)
[2020-10-16] MEDS ORDERED: ONDANSETRON 4 MG/2 ML VIAL ONE (15:53)
[2020-10-16 16:18] LABS: BASO % 0.8 % (0-2.0); EOS % 0.9 % (0-4.5); HEMATOCRIT 45.1 % (32.4-45.2); HEMOGLOBIN 14.9 GM/dl (10.7-15.3); MCH 33.7 pg (25.7-33.7); MEAN CELL VOLUME 102.2 fl (80-96); MEAN PLT VOLUME 6.9 fl (7.5-11.1); MONO % 7.7 % (3.8-10.2); NEUT % 81.6 % (42.8-82.8); PLATELET COUNT 194 K/MM3 (134-434); RBC 4.41 M/mm3 (3.60-5.2); RDW 14.5 % (11.6-15.6)
[2020-10-16 16:37] LABS: ACTIVATED PTT 26.6 SECONDS (25.2-36.5)
[2020-10-16 16:38] LABS: ALBUMIN 4.3 g/dl (3.4-5.0); CALCIUM 9.3 mg/dl (8.5-10); CREATININE 0.8 mg/dl (0.55-1.3); TOT PROT 7.5 g/dl (6.4-8.2)
[2020-10-16 16:41] LABS: INR 1.11 (0.82-1.09); PROTHROMBIN TIME (PATIENT) 12.3 SEC (10.2-13.0)
[2020-10-16 18:14] LABS: AMORP URATES 1+ /hpf (NONE SEEN); EPITHELIAL CELLS MODERATE /hpf
[2020-10-16] MEDS ORDERED: CEFTRIAXONE 1,000 MG in DEXTROSE 5%-WATER - 50 ML IVPB ONE (18:54)
[2020-10-16] MEDS ORDERED: cefTRIAXone SODIUM 1 GM VIAL ONE (19:01)
[2020-10-16] MEDS ORDERED: ALBUTEROL SO4 HFA INHALER IH PRN (20:38)
[2020-10-16] MEDS ORDERED: amLODIPine BESYLATE 5 MG TABLET (FP) ONE (21:01)
[2020-10-16] MEDS ORDERED: ENOXAPARIN NA (PORCINE) 60 MG/0.6 ML DISP.SYRIN SQ ONE (21:01)
[2020-10-16] MEDS: amLODIPine BESYLATE 10 MG TABLET (FP) PO SCH (21:08)
[2020-10-16] MEDS: ENOXAPARIN NA (PORCINE) 40 MG/0.4 ML DISP.SYRIN SQ SCH (21:08)
[2020-10-16] MEDS: SODIUM CHLORIDE 1,000 ML IV SCH (21:08)
[2020-10-17] MEDS: MONTELUKAST NA 10 MG TABLET PO SCH ×2 (03:03→22:00)
[2020-10-17] MEDS: LOSARTAN POTASSIUM 50 MG TABLET PO SCH ×2 (03:03→09:41)
[2020-10-17 03:31] VITALS: BMI 45.8
[2020-10-17] MEDS: LEVOTHYROXINE NA 50 MCG TABLET (FP) PO SCH (06:31)
[2020-10-17 08:21] LABS: ALBUMIN 3.6 g/dl (3.4-5.0); BILIRUBIN,TOTAL 1.1 mg/dl (0.2-1); CALCIUM 8.7 mg/dl (8.5-10); CREATININE 0.8 mg/dl (0.55-1.3); MAGNESIUM 1.8 mg/dL (1.8-2.4); TOT PROT 6.3 g/dl (6.4-8.2)
[2020-10-17 08:29] LABS: BASO % 1.3 % (0-2.0); EOS % 3.5 % (0-4.5); HEMATOCRIT 40.9 % (32.4-45.2); HEMOGLOBIN 13.4 GM/dl (10.7-15.3); LYMPH % 14.9 % (8-40); MCH 33.9 pg (25.7-33.7); MCHC 32.6 g/dl (32.0-36.0); NEUT % 69.3 % (42.8-82.8); PLATELET COUNT 165 K/MM3 (134-434); RBC 3.94 M/mm3 (3.60-5.2); RDW 14.7 % (11.6-15.6); WHITE BLOOD COUNT 4.8 K/mm3 (4.0-10.8)
[2020-10-17] MEDS ORDERED: DEXTROSE 5%-WATER - 50 ML IVPB ONE (09:37)
[2020-10-17] MEDS ORDERED: cefTRIAXone SODIUM 1 GM VIAL ONE (09:37)
[2020-10-17] MEDS: SERTRALINE HCL 50 MG TABLET (FP) PO SCH (09:41)
[2020-10-17] MEDS: PANTOPRAZOLE 40 MG TABLET PO SCH (09:41)
[2020-10-17] MEDS: CEFTRIAXONE 1 GM in DEXTROSE 5%-WATER - 50 ML IVPB SCH (09:41)
[2020-10-17] MEDS: amLODIPine BESYLATE 10 MG TABLET (FP) PO SCH (09:41)
[2020-10-17] MEDS: FUROSEMIDE 40 MG TABLET (FP) PO SCH (09:41)
[2020-10-17] MEDS: BUDESONIDE/FORMETEROL FUMARATE 80/4.5 mcg INHALER IH SCH ×2 (09:44→22:01)
[2020-10-17] MEDS: ENOXAPARIN NA (PORCINE) 40 MG/0.4 ML DISP.SYRIN SQ SCH (11:48)
[2020-10-17] MEDS: SODIUM CHLORIDE 1,000 ML IV SCH (22:00)
[2020-10-18] MEDS: LEVOTHYROXINE NA 50 MCG TABLET (FP) PO SCH (06:33)
[2020-10-18 06:34] VITALS: BP 148/74; PULSE 54; TEMP 97.7
[2020-10-18 08:58] LABS: BASO % 1.3 % (0-2.0); EOS % 4.4 % (0-4.5); HEMATOCRIT 41.2 % (32.4-45.2); HEMOGLOBIN 13.5 GM/dl (10.7-15.3); LYMPH % 13.5 % (8-40); MCH 33.6 pg (25.7-33.7); MCHC 32.7 g/dl (32.0-36.0); MEAN CELL VOLUME 102.5 fl (80-96); MEAN PLT VOLUME 7.1 fl (7.5-11.1); MONO % 6.9 % (3.8-10.2); NEUT % 73.9 % (42.8-82.8); PLATELET COUNT 164 K/MM3 (134-434); RBC 4.01 M/mm3 (3.60-5.2); RDW 14.4 % (11.6-15.6); WHITE BLOOD COUNT 4.2 K/mm3 (4.0-10.8)
[2020-10-18 09:13] LABS: ALBUMIN 3.7 g/dl (3.4-5.0); BILIRUBIN,TOTAL 0.8 mg/dl (0.2-1); CALCIUM 8.7 mg/dl (8.5-10); CREATININE 0.8 mg/dl (0.55-1.3); MAGNESIUM 1.6 mg/dL (1.8-2.4); TOT PROT 6.5 g/dl (6.4-8.2)
[2020-10-18] MEDS ORDERED: DEXTROSE 5%-WATER - 50 ML IVPB ONE (09:24)
[2020-10-18] MEDS ORDERED: cefTRIAXone SODIUM 1 GM VIAL ONE (09:24)
[2020-10-18] MEDS: ENOXAPARIN NA (PORCINE) 40 MG/0.4 ML DISP.SYRIN SQ SCH (09:30)
[2020-10-18] MEDS: FUROSEMIDE 40 MG TABLET (FP) PO SCH (09:30)
[2020-10-18] MEDS: BUDESONIDE/FORMETEROL FUMARATE 80/4.5 mcg INHALER IH SCH (09:31)
[2020-10-18] MEDS: LOSARTAN POTASSIUM 50 MG TABLET PO SCH (09:31)
[2020-10-18] MEDS: PANTOPRAZOLE 40 MG TABLET PO SCH (09:31)
[2020-10-18] MEDS: SERTRALINE HCL 50 MG TABLET (FP) PO SCH (09:31)
[2020-10-18] MEDS: amLODIPine BESYLATE 10 MG TABLET (FP) PO SCH (09:31)
[2020-10-18] MEDS: CEFTRIAXONE 1 GM in DEXTROSE 5%-WATER - 50 ML IVPB SCH (09:32)
[2020-10-18] MEDS ORDERED: MAGNESIUM 2GM/50ML STERILE WATER IVPB IVPB ONE (11:30)
== END 2020-10-18 13:14 | disposition home or self-care (01) | DRG 690 ==
LOC: FER 14:54 → FM/S 20:42 → UNDOADMIN 10-17 02:21
PROVIDERS: ADMIT Internal Medicine; ATTEND Nurse Practitioner Acute Care
DX: N39.0 Urinary tract infection, site not specified (principal); K21.9 Gastro-esophageal reflux disease without esophagitis; E03.9 Hypothyroidism, unspecified; J45.909 Unspecified asthma, uncomplicated; I10 Essential (primary) hypertension; R11.2 Nausea with vomiting, unspecified; I89.0 Lymphedema, not elsewhere classified; F41.9 Anxiety disorder, unspecified; Z85.3 Personal history of malignant neoplasm of breast
CPT/HCPCS: 36415; 71045-TC-FY; 71250-TC; 74177-TC; 80053; 81003; 81015; 82272; 83605; 83690; 83735; 84484; 85025; 85610; 85730; 87040; 87045; 87046; 87086; 87186; 87324; 87449; 93005; 99285-25; C9803; U0003